=== PATIENT | female | born 1990 | race African-American/Black ===

== ENCOUNTER 2019-03-20 15:47 | Emergency (ER) | payer OTHER ==
[~2019-03-20] VITALS: Ht 160 cm; Wt 56.7 kg
[~2019-03-20 15:47] MED LIST: AZITHROMYCIN 2250 MG PO; CHERACOL COUGH120 ML PO; IBUPROFEN 600600 M1 PO; KEFLEX500 MG PO
[2019-03-20 15:53] VITALS: BP 114/73
[2019-03-20 16:26] LABS: URINE BILIRUBIN NEGATIVE (Negative); URINE BLOOD NEGATIVE (Negative); URINE CLARITY CLEAR; URINE COLOR YELLOW; URINE GLUCOSE-RANDOM* NEGATIVE (Negative); URINE KETONES NEGATIVE (Negative); URINE LEUKOCYTES-REFLEX NEGATIVE (Negative); URINE NITRITE-REFLEX NEGATIVE (Negative); URINE PROTEIN (DIPSTICK) NEGATIVE (Negative); URINE SPECIFIC GRAVITY 1.015 (1.005-1.035); URINE UROBILINOGEN 0.2 E.U./dl (0.2-1.0)
[2019-03-20] MEDS ORDERED: FLAGYL500 M1 PO (17:17)
[2019-03-23 04:09] LABS: HSV 1 DNA Negative (Negative); HSV 2 DNA Negative (Negative)
[2019-03-23 08:59] LABS: HSV PCR SOURCE PERIANAL
== END 2019-03-20 17:19 | disposition home or self-care (01) ==
LOC: ER 15:47
PROVIDERS: Physician Assistant
DX: N76.0 Acute vaginitis (principal)

== ENCOUNTER 2020-03-25 18:48 | Emergency (ER) | payer OTHER ==
[~2020-03-25] VITALS: Ht 160 cm; Wt 59.0 kg
[~2020-03-25 18:48] MED LIST changes: +FLAGYL500 M1 PO
[2020-03-25 20:08] VITALS: BP 102/72
== END 2020-03-25 20:09 | disposition home or self-care (01) ==
LOC: ER 18:48
DX: J30.9 Allergic rhinitis, unspecified (principal); Z79.1 Long term (current) use of non-steroidal anti-inflammatories (NSAID)

== ENCOUNTER → 2020-08-28 | Emergency (ER) | payer OTHER ==
[2020-08-28 14:14] VITALS: BP 117/64
== END ==
LOC: ER 14:12
DX: M54.6 Pain in thoracic spine (principal); Z53.21 Procedure and treatment not carried out due to patient leaving prior to being seen by health care provider; V89.2XXA Person injured in unspecified motor-vehicle accident, traffic, initial encounter; Y93.89 Activity, other specified; Y92.89 Other specified places as the place of occurrence of the external cause; Y99.8 Other external cause status

== ENCOUNTER 2020-09-07 09:40 | Emergency (ER) | payer OTHER ==
[~2020-09-07] VITALS: Ht 157.5 cm; Wt 56.7 kg
[2020-09-07 12:56] VITALS: BP 127/86
== END 2020-09-07 12:58 | disposition home or self-care (01) ==
LOC: ER 09:40
DX: S51.811A Laceration without foreign body of right forearm, initial encounter (principal); W25.XXXA Contact with sharp glass, initial encounter; Y93.89 Activity, other specified; Y92.89 Other specified places as the place of occurrence of the external cause; Y99.8 Other external cause status; Z79.899 Other long term (current) drug therapy

== ENCOUNTER 2020-09-22 08:48 | Emergency (ER) | payer OTHER ==
[~2020-09-22] VITALS: Ht 157.5 cm; Wt 56.7 kg
[2020-09-22 08:52] VITALS: BP 114/76
== END 2020-09-22 09:07 | disposition home or self-care (01) ==
LOC: ER 08:48
DX: S51.811D Laceration without foreign body of right forearm, subsequent encounter (principal); X58.XXXD Exposure to other specified factors, subsequent encounter

== ENCOUNTER 2021-09-08 08:37 | Emergency (ER) | payer OTHER ==
[~2021-09-08] VITALS: Ht 157.5 cm; Wt 59.0 kg
[2021-09-08 08:39] VITALS: BP 113/78
== END 2021-09-08 11:00 | disposition home or self-care (01) ==
LOC: ER 08:37
DX: U07.1 COVID-19 (principal); R11.2 Nausea with vomiting, unspecified